=== PATIENT | female | born 1975 | race Caucasian/White ===

== ENCOUNTER 2020-01-12 15:04 | Emergency (ER) | payer OTHER ==
[~2020-01-12] VITALS: Ht 160 cm; Wt 61.2 kg
[2020-01-12] MEDS ORDERED: SYNTHROID100 MCG PO (15:42)
== END 2020-01-12 19:57 | disposition home or self-care (01) ==
LOC: ER 15:04 → EDBD 16:05 → ER 16:05
DX: B34.9 Viral infection, unspecified (principal); D69.49 Other primary thrombocytopenia; Z20.828 Contact with and (suspected) exposure to other viral communicable diseases